=== PATIENT | female | born 2000 | race Caucasian/White ===

== ENCOUNTER 2024-08-10 17:50 | Inpatient (IN) | payer OTHER ==
[~2024-08-10] VITALS: Ht 152.4 cm; Wt 66.7 kg
[2024-08-10 17:09] VITALS: BP 114/72
[2024-08-10] MEDS ORDERED: hydrOXYzine PAMOATE 50 MG CAPSULE PO STA (17:59)
[2024-08-10] MEDS ORDERED: PRENATAL TABLE1 EAC4 PO (18:35)
[2024-08-10] MEDS ORDERED: FOLIC ACID20 MG PO (18:36)
[2024-08-10] MEDS ORDERED: RINGERS SOLUTION,LACTATED 1,000 ML IV ONE (19:15)
[2024-08-10] MEDS ORDERED: CYCLOBENZAPRINE HCL 5 MG TABLET PO ONE (19:15)
[2024-08-10 19:26] LABS: URINE BILIRRUBIN Negative (NEGATIVE); URINE BLOOD Negative; URINE COLOR Yellow; URINE GLUCOSE Negative (NEGATIVE); URINE KETONE Negative (NEGATIVE); URINE LEUKOCYTE Trace; URINE NITRATE Negative; URINE PROTEIN Negative (NEGATIVE)
[2024-08-10 19:29] LABS: URINE BACTERIA 1630.2 uL (0.0-1933); URINE EPITHELIAL CELLS 9.8 uL (0.0-38.8)
[2024-08-10 19:33] LABS: URINE APPEARANCE CLEAR; URINE CAST 0.15 uL (0.0-1.40); URINE RBC 1.8 uL (0.0-20.8)
[2024-08-10 20:28] VITALS: BP 109/71
[2024-08-10] MEDS ORDERED: hydrOXYzine PAMOATE 25 MG CAPSULE PO STA (22:58)
[2024-08-10 23:41] VITALS: BP 105/65
[2024-08-11 05:06] VITALS: BP 99/64
[2024-08-11 06:29] VITALS: BP 97/66; O2SAT 99
[2024-08-11] MEDS ORDERED: MAGNESIUM SULFATE IN WATER 500 ML IV SCH (08:45)
[2024-08-11 13:07] VITALS: BP 105/70
[2024-08-11 15:11] VITALS: BP 98/60
[2024-08-11 20:09] VITALS: BP 117/71
[2024-08-12 00:08] VITALS: BP 90/60
[2024-08-12 03:39] VITALS: BP 104/61
[2024-08-12 06:13] VITALS: BP 92/59; O2SAT 98
[2024-08-12] MEDS ORDERED: RINGERS SOLUTION,LACTATED 1,000 ML IV SCH (07:45)
[2024-08-12] MEDS ORDERED: NIFEDIPINE 30 MG TAB.SA.OSM PO SCH (09:00)
[2024-08-12 11:51] VITALS: BP 111/76
[2024-08-12 15:13] VITALS: BP 118/76
[2024-08-12 17:12] VITALS: BP 108/70
[2024-08-13 01:12] VITALS: BP 108/67
[2024-08-13 08:52] VITALS: BP 112/74
[2024-08-13 16:16] VITALS: BP 117/79
[2024-08-14 00:26] VITALS: BP 109/65
[2024-08-14 08:00] VITALS: BP 103/64; BP 104/68
[2024-08-14 14:52] VITALS: BP 97/60
[2024-08-15] VITALS: BP 105/65
[2024-08-15 08:00] VITALS: BP 103/70
== END 2024-08-15 10:10 | disposition home or self-care (01) | DRG 833 ==
LOC: OBS/DEL 17:50 → OB/GYN 08-11 09:34 → OBS/DEL 08-11 09:34 → LDR 08-11 09:34 → OB/GYN 08-12 14:25
PROVIDERS: ADMIT Obstetrics & Gynecology; ATTEND Obstetrics & Gynecology
PROC: 4A1HXCZ Monitoring of Products of Conception, Cardiac Rate, External Approach (ICD-10-PCS; principal; 2024-08-11)
PROC: BY4CZZZ Ultrasonography of Second Trimester, Single Fetus (ICD-10-PCS; 2024-08-11)
PROC: BU4CZZZ Ultrasonography of Uterus and Ovaries (ICD-10-PCS; 2024-08-11)
DX: O47.02 False labor before 37 completed weeks of gestation, second trimester (principal); O36.8120 Decreased fetal movements, second trimester, not applicable or unspecified; O26.842 Uterine size-date discrepancy, second trimester; Z3A.27 27 weeks gestation of pregnancy; Z20.822 Contact with and (suspected) exposure to COVID-19

== ENCOUNTER 2024-09-29 18:41 | Inpatient (IN) | payer OTHER ==
[~2024-09-29] VITALS: Ht 154.9 cm; Wt 2.3 kg
[2024-09-29 17:50] VITALS: BP 172/98
[2024-09-29 17:59] VITALS: BP 172/98; BP 180/66
[~2024-09-29 18:41] MED LIST: FOLIC ACID20 MG PO; PRENATAL TABLE1 EAC4 PO
[2024-09-29] MEDS ORDERED: MAGNESIUM SULFATE IN WATER 4 GM/100 ML PIGGYBACK IV SCH (19:30)
[2024-09-29] MEDS ORDERED: BETAMETHASONE ACETATE,SOD PHOS 30 MG/5 ML ML IM SCH (19:30)
[2024-09-29] MEDS ORDERED: MAGNESIUM SULFATE IN WATER 500 ML IV SCH (19:30)
[2024-09-29] MEDS ORDERED: RINGERS SOLUTION,LACTATED 1,000 ML IV SCH (19:30)
[2024-09-29 20:00] VITALS: BP 152/70
[2024-09-29 20:10] VITALS: BP 150/86
[2024-09-29 20:15] LABS: PH,URINE 7.5 (5.0-8.0); URINE APPEARANCE Clear; URINE BILIRRUBIN Negative (NEGATIVE); URINE BLOOD Negative; URINE COLOR Yellow; URINE GLUCOSE Negative (NEGATIVE); URINE KETONE Negative (NEGATIVE); URINE LEUKOCYTE Small; URINE NITRATE Negative; URINE PROTEIN Trace (NEGATIVE); URINE UROBILINOGEN 0.2 E.U./dl
[2024-09-29 20:16] LABS: HEMATOCRIT 35.2 % (36.0-45.00); HEMOGLOBIN 12.1 g/dL (12.0-15.00); MEAN CELL VOLUME 85.8 fL (80.00-100.00); MEAN CORPUSCULAR HEMOGLOBIN 29.4 pg (27.00-32.0); MEAN CORPUSCULAR HGB CONC 34.3 g/dl (32.0-36.0); PLATELET COUNT 195 K/uL (150-450); RED CELL DISTRIBUTION WIDTH 13.7 % (11.5-14.5)
[2024-09-29 20:17] LABS: URINE BACTERIA 1146.5 uL (0.0-1933); URINE RBC 2.5 uL (0.0-20.8); URINE WBC 11.5 uL (0.0-23.2)
[2024-09-29 20:36] LABS: INR < 0.93; PARTIAL THROMBOPLASTIN TIME 27.9 SECONDS (22.0-34.0); PROTHROMBIN TIME 10.2 SECONDS (9.0-11.5)
[2024-09-29 20:43] LABS: BILIRUBIN TOTAL 0.36 mg/dL (0.3-1.2); CREATININE SERUM 0.78 mg/dL (0.55-1.02); GFR 90.73; POTASSIUM 4.39 mEq/L (3.5-5.1)
[2024-09-29 21:48] LABS: URIC ACID 5.1 mg/dL (2.5-7.5)
[2024-09-29] MEDS ORDERED: ZOFRAN8 MG PO (21:55)
[2024-09-29] MEDS ORDERED: ONDANSETRON HCL 2 MG/ML VIAL IV SCH (23:05)
[2024-09-29] MEDS ORDERED: FAMOTIDINE/PF 20 MG/2 ML VIAL IV SCH (23:15)
[2024-09-29] MEDS ORDERED: CITRIC ACID/SODIUM CITRATE 30 ML BLIST.PACK PO ONE (23:15)
[2024-09-29 23:51] VITALS: BP 118/78
[2024-09-30 04:50] VITALS: BP 108/69
[2024-09-30 06:14] VITALS: BP 112/67; O2SAT 97
[2024-09-30 11:32] VITALS: BP 104/64; O2SAT 99
[2024-09-30 13:16] LABS: HEMATOCRIT 32.5 % (36.0-45.00); HEMOGLOBIN 11.1 g/dL (12.0-15.00); MEAN CELL VOLUME 85.9 fL (80.00-100.00); MEAN CORPUSCULAR HEMOGLOBIN 29.2 pg (27.00-32.0); PLATELET COUNT 194 K/uL (150-450); RED BLOOD COUNT 3.79 M/uL (4.00-6.00); RED CELL DISTRIBUTION WIDTH 14.1 % (11.5-14.5)
[2024-09-30 14:19] LABS: ALBUMIN 2.6 gm/dL (3.4-5.0); BILIRUBIN TOTAL 0.36 mg/dL (0.3-1.2); CALCIUM 8.1 mg/dL (8.5-10.1); CREATININE SERUM 0.66 mg/dL (0.55-1.02); GFR 110.03; GLOBULINA 3.5 G/DL (2.4-3.5); POTASSIUM 4.34 mEq/L (3.5-5.1); TOTAL PROTEIN 6.1 gm/dL (6.4-8.2)
[2024-09-30 15:00] VITALS: BP 121/79
[2024-09-30 16:31] VITALS: BP 121/79
[2024-09-30] MEDS ORDERED: BETAMETHASONE ACETATE,SOD PHOS 30 MG/5 ML ML IM SCH (17:00)
[2024-10-01 01:19] VITALS: BP 128/61
[2024-10-01 09:38] VITALS: BP 130/81
[2024-10-01 10:32] LABS: HEMOGLOBIN 10.6 g/dL (12.0-15.00); MEAN CELL VOLUME 85.9 fL (80.00-100.00); MEAN CORPUSCULAR HEMOGLOBIN 29.5 pg (27.00-32.0); MEAN CORPUSCULAR HGB CONC 34.3 g/dl (32.0-36.0); PLATELET COUNT 189 K/uL (150-450); RED BLOOD COUNT 3.61 M/uL (4.00-6.00); RED CELL DISTRIBUTION WIDTH 13.8 % (11.5-14.5)
[2024-10-01 11:35] LABS: ALBUMIN 2.5 gm/dL (3.4-5.0); BILIRUBIN TOTAL 0.26 mg/dL (0.3-1.2); CALCIUM 8.7 mg/dL (8.5-10.1); CREATININE SERUM 0.87 mg/dL (0.55-1.02); GFR 79.99; GLOBULINA 3.7 G/DL (2.4-3.5); POTASSIUM 4.55 mEq/L (3.5-5.1); TOTAL PROTEIN 6.2 gm/dL (6.4-8.2)
[2024-10-01 11:36] LABS: PH,URINE 7.5 (5.0-8.0); URINE APPEARANCE Clear; URINE BILIRRUBIN Negative (NEGATIVE); URINE BLOOD Negative; URINE COLOR Yellow; URINE GLUCOSE Negative (NEGATIVE); URINE KETONE Negative (NEGATIVE); URINE LEUKOCYTE Small; URINE NITRATE Negative; URINE PROTEIN Negative (NEGATIVE); URINE UROBILINOGEN 0.2 E.U./dl
[2024-10-01 11:41] LABS: URINE BACTERIA 812.5 uL (0.0-1933); URINE EPITHELIAL CELLS 29.6 uL (0.0-38.8); URINE WBC 28.5 uL (0.0-23.2)
[2024-10-01 11:43] LABS: URINE RBC 1.5 uL (0.0-20.8)
[2024-10-01 16:15] VITALS: BP 140/75
[2024-10-02] VITALS: BP 123/77
[2024-10-02 10:50] VITALS: BP 148/88
[2024-10-02 16:06] VITALS: BP 148/88
[2024-10-02] MEDS ORDERED: ACETAMINOPHEN 500 MG GEL..CAP PO PRN (19:15)
[2024-10-02 19:45] VITALS: BP 149/95
[2024-10-02 23:31] VITALS: BP 149/88
[2024-10-03] MEDS ORDERED: MAGNESIUM SULFATE IN WATER 100 ML IV ONE (02:00)
[2024-10-03] MEDS ORDERED: MAGNESIUM SULFATE IN WATER 500 ML IV SCH (02:00)
[2024-10-03 03:24] VITALS: BP 130/75
[2024-10-03 08:19] VITALS: BP 126/82
[2024-10-03 11:39] VITALS: BP 122/80
[2024-10-03 15:42] VITALS: BP 128/76
[2024-10-03 18:00] LABS: HEMATOCRIT 31.7 % (36.0-45.00); HEMOGLOBIN 10.8 g/dL (12.0-15.00); MEAN CELL VOLUME 85.9 fL (80.00-100.00); MEAN CORPUSCULAR HEMOGLOBIN 29.3 pg (27.00-32.0); MEAN CORPUSCULAR HGB CONC 34.1 g/dl (32.0-36.0); PLATELET COUNT 177 K/uL (150-450); RED BLOOD COUNT 3.69 M/uL (4.00-6.00); RED CELL DISTRIBUTION WIDTH 13.7 % (11.5-14.5)
[2024-10-03 18:25] LABS: ALBUMIN 2.6 gm/dL (3.4-5.0); BILIRUBIN TOTAL 0.29 mg/dL (0.3-1.2); CALCIUM 8.7 mg/dL (8.5-10.1); CREATININE SERUM 0.69 mg/dL (0.55-1.02); GFR 104.52; GLOBULINA 3.4 G/DL (2.4-3.5); POTASSIUM 3.92 mEq/L (3.5-5.1)
[2024-10-03 19:32] LABS: PH,URINE 7.5 (5.0-8.0); URINE APPEARANCE Clear; URINE BILIRRUBIN Negative (NEGATIVE); URINE BLOOD Negative; URINE COLOR Yellow; URINE GLUCOSE Negative (NEGATIVE); URINE KETONE Negative (NEGATIVE); URINE LEUKOCYTE Negative; URINE NITRATE Negative; URINE PROTEIN Negative (NEGATIVE)
[2024-10-03 19:33] LABS: URINE BACTERIA 144.8 uL (0.0-1933); URINE EPITHELIAL CELLS 3.3 uL (0.0-38.8); URINE RBC 3.2 uL (0.0-20.8); URINE WBC 2.9 uL (0.0-23.2)
[2024-10-03 20:25] VITALS: BP 127/83
[2024-10-03 23:33] VITALS: BP 133/84
[2024-10-04 03:29] VITALS: BP 124/79
[2024-10-04 06:22] VITALS: BP 118/73; O2SAT 100
[2024-10-04 10:35] VITALS: BP 137/86
[2024-10-04 16:37] VITALS: BP 141/96
[2024-10-05 01:06] VITALS: BP 128/82
[2024-10-05 08:00] VITALS: BP 134/99
[2024-10-05 17:39] VITALS: BP 130/90
[2024-10-06] VITALS (8 sets, daily range): BP systolic 123–170; BP diastolic 74–100; O2SAT 100
[2024-10-06] MEDS ORDERED: LABETALOL HCL 100 MG/20 ML ML IV NR (11:00)
[2024-10-06] MEDS ORDERED: LABETALOL HCL 20MG/4ML SYRINGE IV ONE (12:00)
[2024-10-06 12:27] LABS: HEMATOCRIT 32.4 % (36.0-45.00); HEMOGLOBIN 10.6 g/dL (12.0-15.00); MEAN CELL VOLUME 86.3 fL (80.00-100.00); MEAN CORPUSCULAR HEMOGLOBIN 28.2 pg (27.00-32.0); MEAN CORPUSCULAR HGB CONC 32.7 g/dl (32.0-36.0); PLATELET COUNT 176 K/uL (150-450); RED BLOOD COUNT 3.76 M/uL (4.00-6.00); RED CELL DISTRIBUTION WIDTH 13.6 % (11.5-14.5)
[2024-10-06] MEDS ORDERED: OXYTOCIN 1,000 ML IV SCH ×2 (13:45→16:00)
[2024-10-06] MEDS ORDERED: MORPHINE SULFATE 4 MG/ML CARTRIDGE IV PRN (13:45)
[2024-10-06] MEDS ORDERED: CEFAZOLIN SODIUM 2,000 MG in 0.9 % SODIUM CHLORIDE 100 ML IV ONE (14:00)
[2024-10-06] MEDS ORDERED: OXYTOCIN 10 UNITS/ML VIAL IV ONE (14:00)
[2024-10-06] MEDS ORDERED: MAGNESIUM SULFATE IN WATER 4 GM/100 ML PIGGYBACK IV ONE (14:15)
[2024-10-06] MEDS ORDERED: MAGNESIUM SULFATE IN WATER 0.04 GM/ML IV.SOLN IV ONE (14:15)
[2024-10-06] MEDS ORDERED: ERYTHROMYCIN BASE OPHT 1GM EACH TUBE OP ONE (14:15)
[2024-10-06] MEDS ORDERED: MORPHINE SULFATE 4 MG/ML VIAL IV ONE (14:55)
[2024-10-06] MEDS ORDERED: hydrALAZINE HCL 20 MG VIAL IV ONE (16:15)
[2024-10-06] MEDS ORDERED: MAGNESIUM SULFATE IN WATER 500 ML IV SCH (16:15)
[2024-10-06] MEDS ORDERED: LABETALOL HCL 200 MG TABLET PO SCH (21:00)
[2024-10-07 04:26] VITALS: BP 139/87
[2024-10-07 07:19] VITALS: BP 125/79
[2024-10-07] MEDS ORDERED: KETOROLAC TROMETHAMINE 10 MG TABLET PO PRN (08:15)
[2024-10-07] MEDS ORDERED: SIMETHICONE 125 MG CAPSULE PO SCH (09:00)
[2024-10-07] MEDS ORDERED: IBUprofen 400 MG TABLET PO SCH (09:00)
[2024-10-07] MEDS ORDERED: GABAPENTIN 300 MG CAPSULE PO SCH (09:00)
[2024-10-07] MEDS ORDERED: DOCUSATE CALCIUM 240 MG CAPSULE PO SCH (09:00)
[2024-10-07 12:01] VITALS: BP 123/82
[2024-10-07 15:35] VITALS: BP 128/86
[2024-10-07 18:40] VITALS: BP 124/80
[2024-10-08 01:18] VITALS: BP 121/72
[2024-10-08 08:51] VITALS: BP 131/88
[2024-10-08 16:00] VITALS: BP 110/71
[2024-10-09 00:36] VITALS: BP 108/63
[2024-10-09 08:22] VITALS: BP 132/90
== END 2024-10-09 16:39 | disposition home or self-care (01) | DRG 788 ==
LOC: OB/GYN 18:41 → LDR 18:41 → OB/GYN 09-30 11:48 → LDR 10-06 15:45 → OB/GYN 10-07 14:04
PROVIDERS: Obstetrics & Gynecology; Obstetrics & Gynecology Gynecology; ADMIT Obstetrics & Gynecology; ATTEND Obstetrics & Gynecology
PROC: 4A1HXCZ Monitoring of Products of Conception, Cardiac Rate, External Approach (ICD-10-PCS; 2024-09-29)
PROC: BY4FZZZ Ultrasonography of Third Trimester, Single Fetus (ICD-10-PCS; 2024-10-02)
PROC: BY4FZZZ Ultrasonography of Third Trimester, Single Fetus (ICD-10-PCS; 2024-10-04)
PROC: BU4CZZZ Ultrasonography of Uterus and Ovaries (ICD-10-PCS; 2024-10-04)
PROC: BY47ZZZ Ultrasonography of Fetal Umbilical Cord (ICD-10-PCS; 2024-10-04)
PROC: 10D00Z1 Extraction of Products of Conception, Low, Open Approach (ICD-10-PCS; principal; 2024-10-06 11:00)
DX: O14.14 Severe pre-eclampsia complicating childbirth (principal); O60.14X0 Preterm labor third trimester with preterm delivery third trimester, not applicable or unspecified; O26.843 Uterine size-date discrepancy, third trimester; O36.8130 Decreased fetal movements, third trimester, not applicable or unspecified; O13.4 Gestational [pregnancy-induced] hypertension without significant proteinuria, complicating childbirth; O36.5930 Maternal care for other known or suspected poor fetal growth, third trimester, not applicable or unspecified; O60.03 Preterm labor without delivery, third trimester; Z3A.35 35 weeks gestation of pregnancy; Z37.0 Single live birth; Z20.822 Contact with and (suspected) exposure to COVID-19

== ENCOUNTER 2025-03-17 18:52 | Emergency (ER) | payer OTHER ==
[~2025-03-17] VITALS: Ht 154.9 cm; Wt 68.0 kg
[~2025-03-17 18:52] MED LIST changes: +ZOFRAN8 MG PO
[2025-03-17] MEDS ORDERED: hydrOXYzine PAMOATE 25 MG CAPSULE PO ONE ×2 (19:59→20:00)
[2025-03-17] MEDS ORDERED: HYDROXYZINE HCL25 MG PO (20:35)
== END 2025-03-17 20:39 | disposition home or self-care (01) ==
LOC: ER 18:53
DX: F41.8 Other specified anxiety disorders (principal)